=== PATIENT | female | born 2000 | race Caucasian/White ===

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

== ENCOUNTER 2018-02-26 21:41 | Emergency (ER) | payer BC ==
[2018-02-26 21:52] VITALS: BP 133/87
[2018-02-26] MEDS ORDERED: Ondansetron INJ* 2 MG/ML VIAL IM ONE (21:52)
--- NOTE | 2018-02-26 21:58 | UC ---
Abdominal Pain Female HPI - HPI Summary HPI Summary: C/O vomiting since yesterday AM with diarrhea. UO x 2 today. Some chills. - History of Current Complaint Stated Complaint: VOMITTING Time Seen by Provider: 02/26/18 21:50 Hx Obtained From: Patient Hx Last Menstrual Period: 04/03/16 ?: No Onset/Duration: Sudden Onset, Lasting Days - 2, Still Present Timing: Constant Severity Initially: Moderate Severity Currently: Severe Location: Discrete At: LLQ Radiates: No Character: Cramping Aggravating Factor(s): Food Alleviating Factor(s): Nothing Associated Signs and Symptoms: Positive: Diaphoresis, Fever, Nausea, Vomiting, Diarrhea. Negative: Blood in Stool, Urinary Symptoms Allergies/Adverse Reactions: Allergies Allergy/AdvReac Type Severity Reaction Status Date / Time No Known Allergies Allergy Verified 02/15/18 15:22 Home Medications: Home Medications Medroxyprogesterone Acetate [Depo-Provera] 150 ml INJ MONTHLY 02/26/18 [History Confirmed 02/26/18] PMH/Surg Hx/FS Hx/Imm Hx Previously Healthy: Yes - Surgical History Surgical History: Yes Surgery Procedure, Year, and Place: wisdom teeth 01/09/16 - Family History Known Family History: Positive: Hypertension, Diabetes Negative: Cardiac Disease, Renal Disease, Respiratory Disease, Blood Disorder - Social History Occupation: Student Lives: With Family Alcohol Use: None Substance Use Type: None Smoking Status (MU): Never Smoked Tobacco - Immunization History Vaccination Up to Date: Yes Review of Systems All Other Systems Reviewed And Are Negative: Yes Constitutional: Positive: Chills Gastrointestinal: Positive: Abdominal Pain, Vomiting, Diarrhea, Nausea Is Patient Immunocompromised?: No Physical Exam Triage Information Reviewed: Yes Appearance: No Pain Distress, Well-Nourished, Ill-Appearing - dry heaving Vital Signs Reviewed: Yes Eyes: Positive: Conjunctiva Clear ENT: Positive: Pharynx normal - Mucus membranes moist., TMs normal Neck exam: Normal Respiratory Exam: Normal Cardiovascular Exam: Normal Abdomen Description: Negative: Nontender - tender muscular in the left side LLQ > LUQ Bowel Sounds: Positive: Hyperactive Musculoskeletal Exam: Normal Neurological Exam: Normal Psychological Exam: Normal Skin Exam: Normal Abd Pain Female Course/Dx - Differential Dx/Diagnosis Differential Diagnosis: Appendicitis, Diverticulitis, Irritable Bowel Syndrome, Pelvic Inflammatory Disease Provider Diagnosis: Viral enteritis Discharge - Sign-Out/Discharge Documenting (check all that apply): Patient Departure All imaging exams completed and their final reports reviewed: No Studies - Discharge Plan Condition: Stable Disposition: HOME Prescriptions: Ondansetron [Ondansetron Odt] 4 mg PO Q6HR PRN #12 tab.rapdis PRN Reason: Nausea/Vomiting Patient Education Materials: Gastroenteritis (ED), Ondansetron (By mouth) Referrals: Kyra Spaulding [Primary Care Provider] - Additional Instructions: Sips of ice cold water. Juice or soda diluted 1:1 with water. Wheat toast with jelly, avoid fats and dairy for the first day or 2. - Billing Disposition and Condition Condition: STABLE Disposition: Home
[2018-02-26] MEDS ORDERED: Ondansetron ODT TAB* 4 MG PO ONE (22:04)
== END 2018-02-26 22:19 | disposition home or self-care (01) ==
LOC: UCCORT 21:41
DX: A08.4 Viral intestinal infection, unspecified (principal)
CPT/HCPCS: 96372; 99212; A9270-GY; G0463; J2405

== ENCOUNTER 2018-05-04 18:08 | Emergency (ER) | payer BC ==
[2018-05-04 18:41] VITALS: BP 133/64
--- NOTE | 2018-05-04 19:02 | ED ---
Lower Extremity - HPI Summary HPI Summary: 18 yr old female with the complaint of right great toe paronychia. Onset four days ago. The patient has mild redness and swelling and discomfort to the right lateral great toe. The patient has not had fever. 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 Her management trainer applied betadine and stuck a scalple in the area twice with no results. - History of Current Complaint Chief Complaint: UCLowerExtremity Stated Complaint: RIGHT TOE CONCERN Time Seen by Provider: 05/04/18 18:48 Hx Last Menstrual Period: 04/14/18 Pain Intensity: 3 - Allergies/Home Medications Allergies/Adverse Reactions: Allergies Allergy/AdvReac Type Severity Reaction Status Date / Time No Known Allergies Allergy Verified 05/04/18 18:41 Home Medications: Home Medications Naproxen Sodium [Aleve] 440 mg PO ONCE PRN 05/04/18 [History Confirmed 05/04/18] PMH/Surg Hx/FS Hx/Imm Hx Endocrine/Hematology History: Denies: Hx Diabetes Cardiovascular History: Denies: Hx Hypertension, Hx Pacemaker/ICD History: Denies: Hx Renal Disease Sensory History: Denies: Hx Hearing Aid Psychiatric History: Denies: Hx Panic Disorder - Surgical History Surgery Procedure, Year, and Place: wisdom teeth 01/09/16 Infectious Disease History: No Infectious Disease History: Denies: Traveled Outside the [place] in Last 30 Days - Family History Known Family History: Positive: Hypertension, Diabetes Negative: Cardiac Disease, Renal Disease, Respiratory Disease, Blood Disorder - Social History Occupation: Student Alcohol Use: None Substance Use Type: Reports: None Smoking Status (MU): Never Smoked Tobacco Review of Systems Constitutional: Negative Positive: Other - right great toe paronychia All Other Systems Reviewed And Are Negative: Yes Physical Exam Triage Information Reviewed: Yes Vital Signs On Initial Exam: Initial Vitals Temp Pulse Resp BP Pulse Ox 98 F 62 18 133/64 100 05/04/18 18:35 05/04/18 18:35 05/04/18 18:35 05/04/18 18:35 05/04/18 18:35 Vital Signs Reviewed: Yes Appearance: Positive: Well-Appearing, No Pain Distress, Obese Skin: Positive: Warm Head/Face: Positive: Normal Head/Face Inspection Eyes: Positive: EOMI ENT: Positive: Normal ENT inspection Neck: Positive: Nontender Respiratory/Lung Sounds: Positive: Clear to Auscultation Cardiovascular: Positive: Pulses are Symmetrical in both Upper and Lower Extremities Abdomen Description: Negative: Distended Musculoskeletal: Positive: Other - right great toe with mild redness and induration paronychia. No fluctuance.. No active bleeding. Small incisions present from management trainer using the scalple. Neurological: Positive: Sensory/Motor Intact, Alert, Oriented to Person Place, Time, CN Intact II-III Psychiatric: Positive: Normal Diagnostics - Vital Signs Vital Signs Temp Pulse Resp BP Pulse Ox 05/04/18 18:35 98 F 62 18 133/64 100 - Laboratory Lab Statement: Any lab studies that have been ordered have been reviewed, and results considered in the medical decision making process. Lower Extremity Course/Dx - Course Course Of Treatment: 18 yr old with early paronychia. No fluctuance and nothing to drain. Rx with keflex. Dc home. FU with [facility] - Diagnoses Provider Diagnoses: Paronychia of great toe, right Discharge - Sign-Out/Discharge Documenting (check all that apply): Patient Departure All imaging exams completed and their final reports reviewed: No Studies - Discharge Plan Condition: Good Disposition: HOME Prescriptions: Cephalexin CAP* [Keflex CAP*] 500 mg PO QID #40 cap Patient Education Materials: Paronychia (ED) Referrals: Kyra Spaulding [Primary Care Provider] - 2 Days - Billing Disposition and Condition Condition: GOOD Disposition: Home
== END 2018-05-04 19:12 | disposition home or self-care (01) ==
LOC: UCCORT 18:08
DX: L03.031 Cellulitis of right toe (principal)
CPT/HCPCS: 99212; G0463

== ENCOUNTER 2018-07-18 09:37 | Emergency (ER) | payer BC ==
[2018-07-18 09:53] VITALS: BP 117/69
--- NOTE | 2018-07-18 10:13 | UC ---
Throat Pain/Nasal Ernesto HPI - HPI Summary HPI Summary: 18 yo female with sore throat and fever x about a day headache some nausea/no vomiting able to take liquids - History of Current Complaint Chief Complaint: UCGeneralIllness Stated Complaint: ST Time Seen by Provider: 07/18/18 09:41 Hx Obtained From: Patient Hx Last Menstrual Period: Depo-Provera Onset/Duration: Gradual Onset, Lasting Hours Severity: Mild Pain Intensity: 4 Pain Scale Used: 0-10 Numeric Cough: None Associated Signs & Symptoms: Positive: Fever. Negative: FB Sensation, Drooling , Wheezing, Hoarseness, Sinus Discomfort, Nasal Discharge, Vomiting, Rash - Epiglottits Risk Factors Epiglottis Risk Factors: Negative - Allergies/Home Medications Allergies/Adverse Reactions: Allergies Allergy/AdvReac Type Severity Reaction Status Date / Time No Known Allergies Allergy Verified 07/18/18 09:49 PMH/Surg Hx/FS Hx/Imm Hx Previously Healthy: Yes - Surgical History Surgical History: Yes Surgery Procedure, Year, and Place: [facility], [facility], [place] - Family History Known Family History: Negative: Cardiac Disease, Hypertension, Diabetes, Renal Disease, Respiratory Disease, Blood Disorder - Social History Alcohol Use: None Substance Use Type: None Smoking Status (MU): Never Smoked Tobacco - Immunization History Vaccination Up to Date: Yes Review of Systems All Other Systems Reviewed And Are Negative: Yes Constitutional: Positive: Fever Skin: Positive: Negative Eyes: Positive: Negative ENT: Positive: Sore Throat Respiratory: Positive: Negative Cardiovascular: Positive: Negative Gastrointestinal: Positive: Negative Genitourinary: Positive: Negative Motor: Positive: Negative Neurovascular: Positive: Negative Musculoskeletal: Positive: Negative Neurological: Positive: Negative Psychological: Positive: Negative Physical Exam Triage Information Reviewed: Yes Appearance: Well-Appearing, No Pain Distress, Well-Nourished Vital Signs: Initial Vital Signs Temp 98.3 F 07/18/18 09:48 Pulse 76 07/18/18 09:48 Resp 16 07/18/18 09:48 BP 117/69 07/18/18 09:48 Pulse Ox 100 07/18/18 09:48 Vital Signs Reviewed: Yes Eyes: Positive: Conjunctiva Clear ENT: Positive: Normal ENT inspection, Uvula midline. Negative: Nasal congestion , Nasal drainage, Tonsillar swelling, Tonsillar exudate, Trismus, Muffled voice , Hoarse voice, Dental tenderness Dental Exam: Normal Neck: Positive: Supple, Nontender, No Lymphadenopathy Respiratory: Positive: Lungs clear, Normal breath sounds, No respiratory distress, No accessory muscle use Cardiovascular: Positive: RRR, No Murmur Musculoskeletal: Positive: ROM Intact, No Edema Neurological: Positive: Alert, Muscle Tone Normal Psychological Exam: Normal Skin Exam: Normal Diagnostics - Laboratory Lab Results: strep - Throat Pain/Nasal Course/Dx - Differential Dx/Diagnosis Provider Diagnosis: Tonsillitis Discharge - Sign-Out/Discharge Documenting (check all that apply): Patient Departure All imaging exams completed and their final reports reviewed: No Studies - Discharge Plan Condition: Stable Disposition: HOME Prescriptions: Cephalexin CAP* [Keflex CAP*] 500 mg PO BID #20 cap Patient Education Materials: Tonsillitis (ED) Referrals: Kyra Spaulding [Primary Care Provider] - 4 Days (if not better) - Billing Disposition and Condition Condition: STABLE Disposition: Home
== END 2018-07-18 10:25 | disposition home or self-care (01) ==
LOC: UCCORT 09:37
DX: J03.90 Acute tonsillitis, unspecified (principal)
CPT/HCPCS: 87070; 87651; 99212; G0463